=== PATIENT | male | born 1965 | race Caucasian/White ===

== ENCOUNTER → 2020-09-16 | Outpatient (CLI) | payer BC, OTHER ==
--- NOTE | 2020-09-18 04:12 | REP ---
INDICATION: PAIN IN RT. COMPARISON: None. TECHNIQUE: Weightbearing AP and lateral views of the right knee along with sunrise view right knee. FINDINGS: Osseous structures, joint spaces, and surrounding soft tissues appear relatively normal. No significant osteoarthritic degenerative changes are appreciated. Lateral view demonstrates small flabella. IMPRESSION: Essentially age-appropriate examination. <Electronically signed by Dimitri Wolf > 09/18/20 [id number]
== END ==
LOC: M SOG 13:40
PROVIDERS: ATTEND Orthopaedic Surgery Adult Reconstructive Orthopaedic Surgery
DX: M25.561 Pain in right knee (principal)

== ENCOUNTER → 2020-11-14 | Outpatient (CLI) | payer BC, OTHER | LOC: M PLAIMG 14:37 | PROVIDERS: ATTEND Orthopaedic Surgery Adult Reconstructive Orthopaedic Surgery | DX: S83.241A Other tear of medial meniscus, current injury, right knee, initial encounter (principal); M25.461 Effusion, right knee; X58.XXXA Exposure to other specified factors, initial encounter; Y92.9 Unspecified place or not applicable; Y99.9 Unspecified external cause status; Y93.9 Activity, unspecified ==